=== PATIENT | female | born 1960 | race Caucasian/White ===

== ENCOUNTER 2018-01-22 04:12 | Outpatient (CLI) | payer MEDICARE | END 2018-01-22 23:59 | disposition home or self-care (01) | LOC: DIABETIC 04:12 | PROVIDERS: ATTEND Family Medicine | DX: E11.9 Type 2 diabetes mellitus without complications (principal) | CPT/HCPCS: G0108 ==

== ENCOUNTER 2023-05-14 07:38 | Day surgery (SDC) | payer MEDICARE ==
[~2023-05-14] VITALS: Ht 162.6 cm; Wt 104.1 kg
[2023-05-14] MEDS ORDERED: METF-1203 PO (08:05)
[2023-05-14] MEDS ORDERED: FURO40TA4 PO (08:05)
[2023-05-14] MEDS ORDERED: EMPA25TA PO (08:05)
[2023-05-14] MEDS ORDERED: BUSP30TA3 PO (08:05)
[2023-05-14] MEDS ORDERED: DOXY-224 PO (08:05)
[2023-05-14] MEDS ORDERED: SODI100035 PO (08:05)
[2023-05-14] MEDS ORDERED: LOSA25TA41 PO (08:05)
[2023-05-14] MEDS ORDERED: ATOR20TA66 PO (08:05)
[2023-05-14] MEDS ORDERED: normal saline 1000ml 1,000 ML IV SCH (08:10)
[2023-05-14 08:28] VITALS: BP 145/73; PULSE 68; RESP 15; TEMP 98.4; O2SAT 94
[2023-05-14] MEDS ORDERED: heparin sodium, porcine/PF 100unit/ml 5ML syringe ONE (09:16)
[2023-05-14] MEDS ORDERED: fentaNYL/PF 50MCG/1 ML 2ML syringe ONE (09:16)
[2023-05-14] MEDS ORDERED: midazolam 1 mg/ML 2ml injection ONE (09:16)
[2023-05-14 11:08] VITALS: BP 152/86; PULSE 64; RESP 16; O2SAT 94
[2023-05-14 11:15] VITALS: BP 172/81; PULSE 71; RESP 16; O2SAT 94
[2023-05-14 11:30] VITALS: BP 145/80; PULSE 70; RESP 16; O2SAT 94
[2023-05-14 11:45] VITALS: BP 149/79; PULSE 72; RESP 16; O2SAT 94
[2023-05-14 12:00] VITALS: BP 142/92; PULSE 75; RESP 16; O2SAT 94
== END 2023-05-14 12:15 | disposition home or self-care (01) ==
LOC: SSTAY O 07:38
PROVIDERS: ATTEND Radiology Diagnostic Radiology
DX: C34.12 Malignant neoplasm of upper lobe, left bronchus or lung (principal); E22.2 Syndrome of inappropriate secretion of antidiuretic hormone; E11.9 Type 2 diabetes mellitus without complications; E78.5 Hyperlipidemia, unspecified; F41.9 Anxiety disorder, unspecified; F31.9 Bipolar disorder, unspecified; E66.01 Morbid (severe) obesity due to excess calories; Z68.39 Body mass index [BMI] 39.0-39.9, adult; J44.9 Chronic obstructive pulmonary disease, unspecified; I10 Essential (primary) hypertension; I25.10 Atherosclerotic heart disease of native coronary artery without angina pectoris; Z98.890 Other specified postprocedural states; F17.290 Nicotine dependence, other tobacco product, uncomplicated; Z79.84 Long term (current) use of oral hypoglycemic drugs; Z79.899 Other long term (current) drug therapy; Z85.828 Personal history of other malignant neoplasm of skin
CPT/HCPCS: 36561; 76937; 77001; 82948; 99152; 99153; C1788; J1642; J2250; J3010; J7030; 76942; A4620; C1750

== ENCOUNTER 2023-05-21 11:27 | Day surgery (SDC) | payer MEDICARE ==
[~2023-05-21] VITALS: Ht 162.6 cm; Wt 103.3 kg
[2023-05-21] VITALS (13 sets, daily range): BP systolic 103–165; BP diastolic 68–97; PULSE 63–79; RESP 15–17; TEMP 98.3; O2SAT 92–95
[~2023-05-21 11:27] MED LIST: ATOR20TA66 PO; BUSP30TA3 PO; DOXY-224 PO; EMPA25TA PO; FURO40TA4 PO; LOSA25TA41 PO; METF-1203 PO; SODI100035 PO
[2023-05-21] MEDS ORDERED: normal saline 1000ml 1,000 ML IV PRN (11:45)
[2023-05-21] MEDS ORDERED: FOLI1TAB27 PO (11:49)
[2023-05-21 12:17] LABS: BASOPHILS # (AUTO) 0.1 X10'3 (0-0.2); BASOPHILS % (AUTO) 0.6 % (0-1); EOSINOPHILS % (AUTO) 0.4 % (0-6); HEMATOCRIT 41.2 % (35.0-45.0); HEMOGLOBIN 13.8 g/dl (12.0-16.0); LYMPHOCYTES # (AUTO) 1.9 X10'3 (1.1-4.8); LYMPHOCYTES % (AUTO) 20.3 % (21-51); MEAN CORPUSCULAR HEMOGLOBIN 30.1 PG (27.0-31.0); MEAN CORPUSCULAR HGB CONC 33.4 g/dL (33.0-36.5); MEAN CORPUSCULAR VOLUME 90.3 FL (78-98); MEAN PLATELET VOLUME 7.5 FL (7.4-10.4); MONOCYTES # (AUTO) 0.8 X10'3 (0-0.9); MONOCYTES % (AUTO) 8.4 % (2-12); NEUTROPHILS # (AUTO) 6.6 X10'3 (1.8-7.7); NEUTROPHILS % (AUTO) 70.3 % (42-75); PLATELET COUNT 315 X10'3 (140-440); RED BLOOD COUNT 4.57 X10'6 (4.20-5.60); RED CELL DISTRIBUTION WIDTH 14.2 % (11.5-14.5); WHITE BLOOD COUNT 9.4 X10'3 (4.5-11.0)
[2023-05-21 12:29] LABS: PROTHROMBIN TIME 11.1 SECONDS (9.0-12.0)
[2023-05-21] MEDS ORDERED: midazolam 1 mg/ML 2ml injection ONE (12:54)
[2023-05-21] MEDS ORDERED: fentaNYL/PF 50MCG/1 ML 2ML syringe ONE (12:54)
[2023-05-21] MEDS ORDERED: gelatin sponge, absorbable (Gelfoam 12-7MM) sponge TP ONE (12:55)
[2023-05-21] MEDS ORDERED: HYDROcodone/acetaminophen 5mg/325mg tablet PO PRN (13:20)
[2023-05-21] MEDS ORDERED: normal saline 1000ml 1,000 ML IV SCH (13:20)
== END 2023-05-21 16:15 | disposition home or self-care (01) ==
LOC: SSTAY O 11:27
PROVIDERS: ATTEND Radiology Vascular & Interventional Radiology
DX: K76.89 Other specified diseases of liver (principal); C78.7 Secondary malignant neoplasm of liver and intrahepatic bile duct; C34.12 Malignant neoplasm of upper lobe, left bronchus or lung; Z79.899 Other long term (current) drug therapy
CPT/HCPCS: 36415; 47000; 77012; 82948; 85025; 85610; 99152; 99153; J2250; J3010; J7030; 96360; A4615